=== PATIENT | male | born 1985 | race African-American/Black ===

== ENCOUNTER 2017-05-20 10:47 | Emergency (ER) | payer MEDICAID ==
[~2017-05-20] VITALS: Ht 177.8 cm; Wt 70.0 kg
[2017-05-20] MEDS ORDERED: KEPP500 PO (10:53)
[2017-05-20] MEDS ORDERED: LEVETIRACETAM 1,000 MG in SODIUM CHLORIDE 0.9% 100 ML IV ONE (11:15)
[2017-05-20 11:24] LABS: BASOPHILS % 0.3 % (0.0-2.0); EOSINOPHILS % 0.7 % (0.0-5.0); HEMATOCRIT. 45.9 % (42.0-52.0); HEMOGLOBIN. 15.7 g/dL (14.0-18.0); LYMPHOCYTES % 9.1 % (20.0-50.0); MEAN CORPUSCULAR HEMOGLOBIN 28.6 pg (28.0-32.0); MEAN CORPUSCULAR VOLUME 83.7 fL (80.0-94.0); MEAN PLATELET VOLUME 10.5 fl (7.4-10.4); MONOCYTES % 3.2 % (2.0-8.0); NEUTROPHILS % 86.7 % (40.0-76.0); PLATELET 116 x1000/uL (130-400); RED BLOOD CELL COUNT 5.49 mill/uL (4.7-6.1); RED CELL DISTRIBUTION WIDTH 13.2 % (11.6-14.6)
[2017-05-20 11:30] LABS: CHLORIDE 105 mEq/L (98-107)
[2017-05-20 11:42] LABS: CARBON DIOXIDE 30 mEq/L (21-32)
[2017-05-20 11:43] LABS: ETHANOL BLOOD < 10 mg/dL; PHENYTOIN 0.5 ug/mL (10-20)
[2017-05-20 11:55] LABS: CARBAMAZEPINE < 0.5 ug/mL (4-12); PHENOBARBITAL < 2.1 ug/mL (15.0-40.0)
[2017-05-20 13:52] VITALS: BP 122/70
== END 2017-05-20 13:53 | disposition home or self-care (01) ==
LOC: ER 10:47
DX: G40.909 Epilepsy, unspecified, not intractable, without status epilepticus (principal); Z91.14 Patient's other noncompliance with medication regimen; V49.88XA Car occupant (driver) (passenger) injured in other specified transport accidents, initial encounter; Y93.89 Activity, other specified; Y92.410 Unspecified street and highway as the place of occurrence of the external cause; Y99.8 Other external cause status
CPT/HCPCS: 36415; 80053; 80156; 80165; 80184; 80185; 82962; 84443; 85025; 96365; 96366; 99285; G0482; J1953; J7050